=== PATIENT | female | born 1955 | race Caucasian/White ===

== ENCOUNTER 2021-12-19 07:14 | Outpatient (CLI) | payer OTHER, SELFPAY ==
--- NOTE | 2021-12-19 08:52 | W.ANESCHARGE ---
Anesthesia Charges Start Date/Time Anesthesia Start Date: 12/19/21 Anesthesia Start Time: 08:09 Stop Date/Time Anesthesia Stop Date: 12/19/21 Anesthesia Stop Time: 08:48 Summary Emergency: No
--- NOTE | 2021-12-19 10:22 | W.ANESCHARGE ---
Anesthesia Charges Start Date/Time Anesthesia Start Date: 12/19/21 Anesthesia Start Time: 08:09 Stop Date/Time Anesthesia Stop Date: 12/19/21 Anesthesia Stop Time: 08:48 Summary Emergency: No
== END 2021-12-19 07:15 | disposition home or self-care (01) ==
PROVIDERS: PCP Family Medicine; Visit Provider Internal Medicine Gastroenterology
DX: Z12.11 Encounter for screening for malignant neoplasm of colon (principal); K63.5 Polyp of colon; K44.9 Diaphragmatic hernia without obstruction or gangrene; K31.89 Other diseases of stomach and duodenum; R10.31 Right lower quadrant pain; Z86.010 Personal history of colon polyps
CPT/HCPCS: 00813; 43239; 45380; 88305; J2704

== ENCOUNTER 2024-10-24 13:02 | Outpatient (CLI) | payer MEDICARE, SELFPAY ==
--- OUTSIDE RECORDS SUMMARY | 2008-12-03 13:01 | XMS_ITS | Continuity of Care Document ---
Author Organization [facility] Address [address] [place] [address] Phone Care Team Providers Care Automotive Engineering Technician Name Role Phone Benny GONSALEZ MD, Dimitri Unavailable Unavailable Advance Directives Directive Yes / No Effective Date File Name No Information Encounters Encounter Description Practice Location Reason(s) For Visit Diagnoses Date Provider Providers Copied on Encounter [facility], [address] [facility] [address], [place], [place], [id number], [place] tel:[phone] No Information 0200 9 Benny Mosley. [address], [place], [address], [place]. tel:[phone] Referring Provider: Dimitri Kiran, [address] [place], [place], [facility]. tel:[phone] Family History Family Member Type Diagnosis Age At Onset No Information Payers Payer name Insurance type Covered democrat ID Authoriza tion(s) Blue Plus BL [id number] Social History Type Description Quantity Date Captured Comments Sex Female Smoking Status No Information Chief Complaint And Reason For Visit No Information Reason For Referral Reason For Referral No Information History Of Present Illness Encounter Date Complaint History Of Prese nt Illness No Information Functional Status Date Functional Assessmen t No Information Instructions Date Instruction Additional Infor mation No Information Assessments Type Assessment Date No Information Patient Care Teams Name Effective Dates (start - stop) Status Members No Information
--- OUTSIDE RECORDS SUMMARY | 2018-04-04 04:06 | XMS_ITS | Continuity of Care Document ---
Author Organization [facility] Address [address] [address] [place] [address] Phone Care Team Providers Care [employer] Name Role Phone Monty HERRERA, Kasie Unavailable Unavailable Allergies, Adverse Reactions, Alerts Substance Reaction Status Criticality trimethoprim Active No Information sulfamethoxazole Active No Informat ion ragweed pollen anaphlaxis Active No Informatio n Iodinated Contrast Media itchingitching Active N o Information amoxicillin rash Active No Information fentanyl increased heart rate (220) Active N o Information WARNIN allergy(ies) could not be collected because the type is not supported. Please contact the source practice for further details. Medications Medication Instructions Dosage Effective Dates (start - stop) Status Comments Zantac 150 mg tablet take 1 tablet by oral route 2 times every day - Active atenolol 50 mg tablet take 1 tablet by oral route every day 50 MG - Active omeprazole 20 mg capsule,delayed release take 1 capsule by oral route every day before a meal 20 MG - Active Ativan 1 mg tablet take 0.5 mg tablet as needed - Active Ambien 10 mg tablet take 1 by Oral route every evening prn sleep 1 - Active METAMUCIL (unknown strength) take 1 tablespoon by oral route every day Not Available - Active Vitamins and Minerals tablet honey bee venom - Active Zantac 150 mg tablet take 1 tablet by oral route 2 times every day - No Longer Active Procedures Procedure Date Offic/outpt E&m Estab Low-mod 8 Esophageal Motility Study Ugi Endo; W/bx 1/mx Level Iv-surg Path Gross/micro 18 Colonoscopy Flex; W/bx 1/mx Ugi Endo; W/bx 1/mx Level Iv-surg Path Gross/micro 17 Colonoscopy Flex; W/bx 1/mx Offic Cons New/estab Mod-hi 60 08 Advance Directives Directive Yes / No Effective Date File Name No Information Encounters Encounter Description Practice Location Reason(s) For Visit Diagnoses Date Provider Providers Copied on Encounter [facility], [address] [address], [place], [id number], [place] tel:[phone] [facility] [address] No Information 8 Monty Ferro. [address] [place] [address], [id number], [place]. tel:[phone] Offic/outpt E&m Estab Low-mod [facility], [address] [address], [place], [id number], [place] tel:[phone] [facility] [address] GI Symptoms or Concerns (chief complaint) Gastro-esophag eal reflux disease with esophagitisDys phagia, unspecified typeDietary counseling and surveillanceEs sential (primary) hypertension 8 Monty Ferro. [facility] [address], [id number], [place]. tel:[phone] Referring Provider: Referral Self, USE FOR SELF REFERRALS. [facility], [address] [address], [place], [id number], [place] tel:[phone] [facility] Dysphagia, unspecified type 8 Camilla Adair. [address] [facility], [facility] [address], [place], [id number], [place]. tel:[phone] [facility], [address] [address], [place], [id number], [place] tel:[phone] [facility] [address] GI Symptoms or Concerns (chief complaint) Dysphagia, unspecified 8 Camilla Adair. [address] [facility], [address], [id number], [place]. tel:[phone] Referring Provider: Referral Self, USE FOR SELF REFERRALS. [facility], [address] [address], [place], [id number], [place] tel:[phone] [facility] Dysphagia, unspecified typeGastro-eso phageal reflux disease with esophagitisDys phagia, unspecified 3 8 Camilla Adair. [address], [id number], [place]. tel:[phone] Referring Provider: Referral Self, USE FOR SELF REFERRALS. [facility], [address] [address], [place], [id number], [place] tel:[phone] [facility] Dysphagia, unspecified type 8 Camilla Adair. [address] [facility], [address], [id number], [place]. tel:[phone] Kentrell Spencer MD. tel:[phone] [facility], [address] [address], [place], [id number], [place] tel:[phone] [facility] Gastroesophage al reflux disease without esophagitis 8 Camilla Adair. [address] [place] [address], [id number], [place]. tel:[phone] Kentrell Spencer MD. tel:[phone] [facility], [address] [address], [place], [id number], [place] tel:[phone] [facility] Gastroesophage al reflux disease without esophagitisPol yp of ascending colon, unspecified typeEncounter for screening for malignant neoplasm of colonBenign neoplasm of transverse colonGastro-es ophageal reflux disease without esophagitisBen ign neoplasm of transverse colon Feb- 7 Camilla Adair. [address] [place] [address] [place], [id number], [place]. tel:[phone] Referring Provider: Mona Tanner MD, [address] [facility], [place], [address]. tel:[phone] [facility] [place], [address] [address], [place], [place], [id number], [place] tel:[phone] No Information Aug-0 3200 8 No Information Referring Provider: No Primary. Offic Cons New/estab Mod-hi 60 [facility] [place], [address] [address], [facility] [place], [id number], [place] tel:[phone] No Information 0 3200 8 No Information Referring Provider: No Primary. Family History Family Member Type Diagnosis Age At Onset Brother Problem (finding) Alive and well Mother Problem (finding) Mother Problem (finding) malignant neoplasm of l veronica Father Problem (finding) Diabetes mellitus Brother Problem (finding) Diabetes mellitus Immunizations Vaccine Date Status Comments Influenza, injectable, MDCK, preservative free Flucelvax Quad Y administered Source: Other Provid er Payers Payer name Insurance type Covered republican ID Authoriza tiankit(s) Blue [employer] [facility] [id number] Social History Type Description Quantity Date Captured Comments Sex Female Smoking Status No Information Chief Complaint And Reason For Visit No Information Reason For Referral Reason For Referral No Information Plan Of Treatment Date Type Action Status Goal Lifestyle education regardin g diet completed Referral Ordered: Esoph Motility Study; Appointment date/timeframe: 03/15/2018 ordered Referral Ordered: Video Swallow With Speech Pathologist/Occupational Therapist Appointment date/timeframe: 03/19/2018 ordered Referral Ordered: Xray Esophagus (Barium Swallow Study) Appointment date/timeframe: 03/19/2018 ordered Referral Ordered: EGD Appointment date/timeframe: 03/05/2018 ordered Referral Ordered: follow-up visit with Kyler flaherty/ROSALEE ordered History Of Present Illness Encounter Date Complaint History Of Prese nt Illness GI Symptoms or Concerns This is a 62-year-old female who returns to clinic for followup after testing. She was evaluated for reflux symptoms with endoscopy in February 2017. This endoscopy showed Hill grade 4 anatomy, otherwise was normal. Small bowel biopsies were normal. She did have a screening colonoscopy at that time as well, which showed 2 transverse polyps, and repeat colonoscopy was recommended in 1 year.The history is somewhat confusing, but it sounds like around the time of that endoscopy, she was under quite a lot of stress, and also had been taking NSAIDs following a bunion surgery. She describes an ongoing problems with sore throat as well as gurgling and wheezing noises in her throat. She describes coughing up secretions, especially at night. She saw an ENT and it sounds like their exam did not suggest reflux. Because of persistent symptoms, she had another endoscopy on 03/05/2018. This showed a somewhat tortuous esophagus with tertiary contractions, and otherwise was normal. [facility] GI Symptoms or Concerns Functional Status Date Functional Assessmen t No Information Instructions Date Instruction Additional Infor bia Gastroesophageal Reflux Disease Related to Gastro-esophageal reflux disease with esophagitis Lifestyle education regarding di et Related to Dietary counseling and surveillance Colon Polyps Related to Polyp of ascending colon, unspecified type Colon Cancer Prevention Related to Polyp of ascending colon, unspecified type Assessments Type Assessment Date No Information Patient Care Teams Name Effective Dates (start - stop) Status Members No Information
--- NOTE | 2024-10-24 14:45 | P.ANES_ITS ---
Anesthesia Charges Start Date/Time Anesthesia Start Date: 10/24/24 Anesthesia Start Time: 14:06 Stop Date/Time Anesthesia Stop Date: 10/24/24 Anesthesia Stop Time: 14:45 Coding CPT Codes CPT Codes: MARTINEZ LWR INTST NDSC NOS - 75942 ([id number]) P2 - PATIENT W/MILD SYST DISEASE, QK - OIL WELL CABLE TOOL DRILLER 2-4 CNCRNT ANES PROC, QX - FEED RESEARCH TECHNICIAN SVC W/ MD MED DIRECTION
--- NOTE | 2024-10-24 14:45 | W.ANESCHARGE ---
Anesthesia Charges Start Date/Time Anesthesia Start Date: 10/24/24 Anesthesia Start Time: 14:06 Stop Date/Time Anesthesia Stop Date: 10/24/24 Anesthesia Stop Time: 14:45 Coding CPT Codes CPT Codes: MARTINEZ LWR INTST NDSC NOS - 13332 ([id number]) P2 - PATIENT W/MILD SYST DISEASE, QK - OCCUPATIONAL THERAPY SPECIALIST 2-4 CNCRNT ANES PROC, QX - ULTRASONIC SOLDERER SVC W/ MD MED DIRECTION
--- NOTE | 2024-10-24 14:47 | P.ANES_ITS ---
Anesthesia Charges Start Date/Time Anesthesia Start Date: 10/24/24 Anesthesia Start Time: 14:06 Stop Date/Time Anesthesia Stop Date: 10/24/24 Anesthesia Stop Time: 14:45 Coding CPT Codes CPT Codes: MARTINEZ LWR INTST NDSC NOS - 19877 ([id number]) P2 - PATIENT W/MILD SYST DISEASE, QK - WEB SITE SPECIALIST 2-4 CNCRNT ANES PROC, QX - PULVERIZING AND SIFTING OPERATOR SVC W/ MD MED DIRECTION
--- NOTE | 2024-10-24 14:47 | W.ANESCHARGE ---
Anesthesia Charges Start Date/Time Anesthesia Start Date: 10/24/24 Anesthesia Start Time: 14:06 Stop Date/Time Anesthesia Stop Date: 10/24/24 Anesthesia Stop Time: 14:45 Coding CPT Codes CPT Codes: MARTINEZ LWR INTST NDSC NOS - 74849 ([id number]) P2 - PATIENT W/MILD SYST DISEASE, QK - ACCOUNTING MACHINE OPERATOR 2-4 CNCRNT ANES PROC, QX - PSYCHOTHERAPIST SOCIAL WORKER SVC W/ MD MED DIRECTION
--- OUTSIDE RECORDS SUMMARY | 2024-10-25 00:44 | XMS_ITS | Clinical Summary ---
Author Organization [facility] Address [address] [facility] [address] [place] [address] Phone Care Team Providers Care Ed Tech Name Role Phone [facility] Unavailable Unava ilable Conditions or Problems Problem Name Problem Code Onset Date Status Entry Date Provider Comment Standard Description Annotate Neuropathic pain 151508378 (SNOMED CT) 10/29 Active 10/29 Samm Lauren MD Neuropathic pain Peripheral polyneuropathy 666096984 (SNOMED CT) 10/29 Active 10/29 Samm Lauren MD Peripheral nerve disease COCCYGEAL PAIN 94445313 (SNOMED CT) 11/09 Active 11/12 Nahmoy Juliana Pain in coccyx ROTATOR CUFF SPRAIN AND STRAIN S43.429A (ICD-10-CM ) 07/08 Active 07/12 Destiny Reibel Sprain of unspecified rotator cuff capsule, initial encounter PAIN IN JOINT, SHOULDER REGION 804031817 (SNOMED CT) 05/17 Active 05/20 Destiny Reibel Shoulder joint pain LATE EFF LUMBAR STRAIN 905.7 (ICD-9-CM) 05/17 Active 05/20 Destiny Reibel Late effect of sprain and strain without mention of tendon injury LUMBOSACRAL SPONDYLOSIS WITHOUT MYELOPATHY 85472207 (SNOMED CT) 05/17 Active 05/20 Destiny Reibel Lumbosacral spondylosis without myelopathy ANXIETY STATE, UNSPECIFIED 689086156 (SNOMED CT) 05/22 Active 05/23 Destiny Reibel Anxiety state TROCHANTERIC BURSITIS 7661661 (SNOMED CT) 01/26 Active 02/03 Destiny Reibel Greater trochanteric pain syndrome SACROILIAC JOINT DYSFUNCTION 485636964 (SNOMED CT) 01/26 Active 02/03 Destiny Reibel Sacroiliac disorder LEG WEAKNESS G83.10 (ICD-10-CM ) 01/26 Active 02/03 Destiny Reibel 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 LOW BACK PAIN 036162082 (SNOMED CT) 01/26 Active 02/03 Destiny Reibel Low back pain HEADACHE 33981751 (SNOMED CT) Active 07/18 Chloe Raehsler NUCLEAR REACTOR ENGINEER Headache CARPAL TUNNEL SYNDROME 79377578 (SNOMED CT) 02/03 Active 06/02 Apoorva Becerra Carpal tunnel syndrome DISPLACEMENT, CERVICAL DISC W/O MYELOPATHY 00279092 (SNOMED CT) 02/03 Active 06/02 Apoorva Becerra Displacement of cervical intervertebral disc without myelopathy BACK PAIN, THORACIC REGION 942940108 (SNOMED CT) 01/14 Active 06/02 Apoorva Becerra Thoracic back pain LATE EFFECT, CERVICAL STRAIN 905.7 (ICD-9-CM) 01/14 Active 06/02 Apoorva Becerra Late effect of sprain and strain without mention of tendon injury Medications Medication Instructions Start Date Stop Date Generic Name ND Provider AMLODIPINE BESYLATE 5 MG TABS TAKE 1 TABLET BY MOUTH EVERY DAY AMLODIPINE BESYLATE 15040543626 Samm Lauren MD AMITRIPTYLINE HCL 25 MG TABS TAKE 1 TABLET BY MOUTH EVERY DAY IN THE EVENING AMITRIPTYLINE HCL 98349566650 Samm Lauren MD GABAPENTIN 100 MG CAPS TAKE 1 CAP AT BEDTIME FOR A WEEK, 2 CAPS AT BEDTIME THE SECOND WEEK, 3 CAPS AT BEDTIME THEREAFTER GABAPENTIN 72032171367 Samm Lauren MD LORAZEPAM 0.5 MG TABS TAKE 2 TABLETS BY MOUTH EVERY 8 HOURS NEEDED LORAZEPAM 73190732389 Samm Lauren MD ATENOLOL 50 MG TABS TAKE 1 TABLET BY MOUTH EVERY DAY ATENOLOL 00120296588 Samm Lauren MD ESTRADIOL 0.1 MG/GM CREA INSERT 1 G INTO THE VAGINA AT BEDTIME. MAY APPLY SMALL AMOUNT EXTERNALLY VS USING APPLICATOR. ESTRADIOL [id number] Samm Lauren MD [id number] ETHYL ESTERS 1 GM CAPS TAKE 2 CAPSULES BY MOUTH EVERY DAY [id number] ETHYL ESTERS 08469382712 Samm Lauren MD FAMOTIDINE 20 MG TABS TAKE 1 TABLET BY MOUTH TWICE A DAY FAMOTIDINE 95260205656 Samm Lauren MD ZOLPIDEM TARTRATE 10 MG TABS TAKE ONE TABLET BY MOUTH AT BEDTIME IF NEEDED FOR SLEEP. ZOLPIDEM TARTRATE 47463668124 Samm Lauren MD AMBIEN 10 MG TABS 1po qhs -- Rx'd by PMD per pt. ZOLPIDEM TARTRATE [id number] Ami Gums MA IBUPROFEN 800 MG TABS 1po tid prn pain IBUPROFEN 66515742772 Ami Gums MA NABUMETONE 750 MG TABS 1po bid with food NABUMETONE 46372959299 Ami Gums MA IBUPROFEN 800 MG TABS 1po tid prn pain IBUPROFEN 99679080576 Oli Jovel MD FLEXERIL TABS 10 MG i- po q 8h prn CYCLOBENZAPRINE HCL 41831379517 Ami Gums MA NABUMETONE 750 MG TABS 1po bid with food NABUMETONE [id number] Oli Jovel MD CALCIUM CITRATE-VITAMIN D TABLET Prescribed by Family GONSALEZ CALCIUM CITRATE-VITAMIN D TABS 12479244597 Aleksandra Ly MULTIVITAMINS TABS Prescribed by Family GONSALEZ MULTIPLE VITAMIN [id number] Aleksnadra Jacob ATENOLOL TABS 25mg qd--Prescribed by Family GONSALEZ ATENOLOL TABS [id number] Aleksandra Jacob ATIVAN 0.5 MG TABS 0.5mg- 1mg--1-2 times a day--Prescribed by Family GONSALEZ LORAZEPAM [id number] Aleksandra Ly TRAMADOL HCL TABS 25mg --1-3 tabs qd --Prescribed by Family GONSALEZ TRAMADOL HCL TABS [id number] Aleksandra Ly ULTRAM 50 MG ORAL TABLET i-ii q 6 hr prn not to exceed 400 mg qd TRAMADOL HCL 29024632039 Aleksandra Ly FLEXERIL TABS 10 MG i- po q 8h prn CYCLOBENZAPRINE HCL 90027020045 Oli Jovel MD ULTRAM 50 MG ORAL TABLET i-ii q 6 hr prn not to exceed 400 mg qd TRAMADOL HCL 27311238392 Bree Guzman PA-C NAPROXEN 500 MG TABS i- po bid prn NAPROXEN 80361268622 Ami Gums MA FLEXERIL TABS 10 MG i- po q 6h prn CYCLOBENZAPRINE HCL 91786778512 Ami Gums MA HOME REPLACEMENT House Hold Cleaning, Dusting, Vaccuming, Dishes, Sweeping and Mopping, Laundry, moving any heavy objects,Yard Work, Painting, Windows, and Shavaling in the winter. HOME REPLACEMENT Oli Jovel MD NAPROXEN 500 MG TABS i- po bid prn NAPROXEN [id number] Oli Jovel MD FLEXERIL TABS 10 MG i- po q 6h prn CYCLOBENZAPRINE HCL 70548750296 Oli Jovel MD VALIUM 10 MG TABS take one tab by mouth 6h before scan and may repeat one tab 2h before scan and if needed one at the time of scan........ must have bus driver supervisor DIAZEPAM [id number] Ami Gumkurt MA VALIUM 10 MG TABS take one tab by mouth 6h before scan and may repeat one tab 2h before scan and if needed one at the time of scan........ must have bus driver supervisor [facility] [phone] Oli Jovel MD HOME REPLACEMENT House Hold Cleaning, Dusting, Vaccuming, Dishes, Sweeping and Mopping, Laundry and with moving of any heavy objects, and Yard Work. HOME REPLACEMENT Oli Jovel MD Medications Administered No information available. Allergies, Adverse Reactions, Alerts Allergy Name Reaction Description Start Date Severity Statu s Provider FENTANYL Rapped Heart Beat. L ight Headed. Critical Active Ami Gums MA CONTRAST DYE rash/hot Critical Active Kathry n Ly FENTANYL Critical No Longer Active Aleksandra Ly RAGWEED unknown reaction Critical Active Shayne helle Aliynebranelvin MA BEE STINGS unknown reaction Critical Active Mi greg Wedebrand MA AMOXICILLIN unknown reaction Critical Active M emily Mahnaz MA Results Date Name Value Unit Range Flag Description Office Visit: mail SMOK STATUS former smoker Tob acco smoking status MEDS REVIEW Done Documenta tion of current medications (procedure) Internal Other: Authorizatio n - OBS [id number] Yes GE use only - for LinkLogic import when terms are not otherwise specified Internal Other: Verbal Autho rization/Emergency Contact - OBS VERBAL_EMER Done Verbal au thorization and emergency contact Internal Other: Authorizatio n - OBS [email or web address] Yes Authoriza tion: Release of Information - Authorize [facility] - Payment and Healthcare Operations ROIAUTHOTHER Yes Authoriz ation: Release of Information - Authorize Others/Insurance - Payment and Healthcare Operations HIECONSENT Yes Consent To Release information to the Health Information Exchange (HIE) [email or web address] Yes Authorizat ion: Authorization for [facility] to leave messages, voicemail, send text messages, send emails AUTHRELHCARE Yes Authoriz ation: Release/Retrieval of Information to/from Healthcare Facilities, Pharmacy Benefit Payers and Providers AUTHPRIVPRAC Yes Authoriz ation: Notice of privacy practices AUTHBENEFIT Yes Authoriza tion: Assignment of Benefits and Payment Agreement Plan of Care Type Date Detail Pending order Follow up ROSALEE Pending order Follow up ROSALEE Pending Order exclud ed from report: Pending order Patient Instruct ions Pending order Immunofixation S moises Pending order Vitamin B6 (Pyri doxine) Procedures Code Procedure Name Date Entry Date CPT-62065 Nerve Conduction 11-12 studies CPT-00429 EMG with NCS (5+ muscles) - 2 limbs 04/05 ORDERS Follow up ROSALEE ORDERS Immunofixation Serum ORDERS Vitamin B6 (Pyridoxine) 2020 [facility]-[id number] Documentation of current medicatio ns ORDERS Patient Instructions CPT-69109 MRI Pelvis (Without Contrast) CPT-41166 Fluoroscopy Guidance and Localization (MD Rae) CPT-98052 Injection, S1 Joint ([facility]) 20 01/15/27 CPT-92292 Injection, Major Joint or Bursa ([facility]) 200 01/15/27 CPT-42802 Fluoroscopy Guidance and Localization (MD Rae) CPT-50610 Injection, Major Joint or Bursa ([facility]) 200 01/14/21 CPT-67572 Injection, S1 Joint ([facility]) 20 01/14/21 CPT-03772 EMG 1 limb CPT-98499 Motor NCS x 2 CPT-84349 Sensory NCS x 1 CPT-75193 MRI Lumbar (Without Contrast) Vital Signs Date Name Value Unit Description Height 66 [in_us] height E&M BMI (Body Mass Index) 30.62 kg/m2 Bod y Mass Index (Ratio) Weight Measured 85.91 kg weight in kilograms E&M Weight Measured 189 [lb_av] weight E& M Weight Measured 189 [lb_av] weight E& M BP Diastolic 89 mm[Hg] blood pressu re, diastolic BP Systolic 137 mm[Hg] blood pressur e, systolic Heart Rate 100 /min pulse rate Immunizations No information available. Advance Directives No information available.
--- OUTSIDE RECORDS SUMMARY | 2024-10-25 00:49 | XMS_ITS | Clinical Summary ---
Author Organization [facility] Address [address] [place] [address] Care Team Providers Care Plastics Patternmaker Name Role Phone [facility] Primary Care Provider Unava ilable Source Comments You are receiving this document as you are listed as the primary care provider,follow-up provider, or the patient has been referred to you for consultation.This is in compliance with the Medicare and[facility] E[facility] Incentive [facility],which states Providers who transition their patient to another setting of careor provider of care or refers their patient to another provider of care shouldprovide summary care record for each transition of care or referral. [employer] Allergies Active Allergy Reactions Criticality Noted Date Comments Amoxicillin 12/06/2009 PN: LW Reaction: pruritis Fentanyl 12/06/2009 PN: LW Reaction: TACHYCARDIA Other 12/06/2009 PN: LW Other1: -bee stings, Review Contrast Media 12/06/2009 PN: LW CM1: Nonspecific Contrast Adverse Reaction Reaction : Pruritis, Generalized Medications Estradiol 0.25 MG/0.25GM GEL Place onto the skin daily (every 24 hours). LW Comment:Uncon firmed Med Details 12/06/2009 Active ATENolol (AKA TENORMIN) 25 MG tablet Take 1 tablet by mouth daily (every 24 hours). LW Comment:Uncon firmed Med Details LW Addl Instr:Indicat ed for: High Blood Pressure 90 3 12/06/2009 Active famotidine (PEPCID) 40 MG/5ML suspension Take 0.5 mg/kg by mouth two times a day. Active ASPIRIN OR Active omega-3 fatty acids (FISH OIL) 1000 MG capsule Take 2 g by mouth daily. Active amitriptyline (ELAVIL) 25 MG tabletIndicatio ns:Pain in joints of both feet,Raynaud's disease without gangrene (HRC),Extremity numbness Take 1 Tablet by mouth every evening. 90 Tablet 3 07/19/2020 Active zolpidem (AMBIEN) 10 MG tablet TAKE ONE TABLET BY MOUTH AT BEDTIME IF NEEDED FOR SLEEP. 04/23/2020 Active gabapentin (NEURONTIN) 100 MG capsuleIndicati ons:Pain in joints of both feet,Raynaud's disease without gangrene (HRC),Extremity numbness 100 mg at bedtime for a week, than 200 mg at bedtime the second week, than 300 mg at bedtime thereafter. 90 Capsule 5 07/19/2020 Active Active Problems Problem Noted Date Diagnosed Date Endometriosis 12/06/2009 Overview (12/27/2016): Endometriosis NOS Disorder of coccyx 12/06/2009 Overview (12/27/2016): Coccydynia Pain in joint 12/06/2009 Overview (12/27/2016): LW Modifier: right shoulder ; Arthralgia Backache 12/06/2009 Overview (12/27/2016): LW Modifier: chronic ; Pain Back Problem with head, neck, or trunk 12/06/2009 Overview (12/27/2016): LW Modifier: chronic neck pain ; Neck Problems NOS Carpal tunnel syndrome 12/06/2009 Immunizations Immunization Administration Dates Next Due Influenza, Unspecified Formulation 02/10/2020 Social History Tobacco Use Types Packs/Day Years Used Date Smoking Tobacco: Never Smokeless Tobacco: Never Comments Unknown Sex and Gender Information Value Date Recorded Sex Assigned at Not on file Legal Sex Female 3:38 AM CDT Gender Identity Not on file Sexual Orientation Not on file Last Filed Vital Signs Vital Sign Reading Time Taken Comments Blood Pressure 131/72 04/12/2020 11:09 AM WEB CONTENT EXECUTIVE Pulse 84 04/12/2020 11:09 AM WEB CONTENT EXECUTIVE Temperature 36.8 C (98.2 F) 04/12/2020 11:09 AM WEB CONTENT EXECUTIVE Respiratory Rate - - Oxygen Saturation - - Inhaled Oxygen Concentration - - Weight 87.1 kg (192 lb) 04/12/2020 11:09 AM WEB CONTENT EXECUTIVE Height 170.2 cm (5' 7) 04/12/2020 11:09 AM WEB CONTENT EXECUTIVE Body Mass Index 30.07 04/12/2020 11:09 AM WEB CONTENT EXECUTIVE Plan of Treatment Health Maintenance Due Date Last Done Comments Colon Cancer Screening Plan Due 1955 Hep C Screening (Preventive Services) 1955 Mammogram 1955 Adult Preventive Visit 1974 Cholesterol 2001 Pneumococcal Vaccine 50+ Yrs (1 of 1 - PCV) 2006 COVID-19 Vaccine (2 - season) 2024 07/15/2020 DTaP/Tdap/Td Vaccine (2 - Tdap) 08/27/2024 08/27/2014, 02/26/2003 Influenza Vaccine (Season Ended) 2025 02/10/2020, 02/06/2019, 02/07/2018, Additional history exists RSV Vaccine (1 - 1-dose 75+ series) 11/20/2031 HepA Vaccine Aged Out 10/16/2017, 04/07, 04/04/2017 No longer eligible based on patient's age to complete this topic Zoster/Shingles Vaccine Completed 03/21/2018, 01/21 HepB Vaccine Aged Out No longer eligi ble based on patient's age to complete this topic Hib Vaccine Aged Out No longer eligi ble based on patient's age to complete this topic IPV (Polio) Vaccine Aged Out No longe r eligible based on patient's age to complete this topic MCV4 Vaccine Aged Out No longer eligi ble based on patient's age to complete this topic Meningococcal B Vaccine Aged Out No l onger eligible based on patient's age to complete this topic Insurance Dr [place], [place] [id number] [facility] [address] [place], [id number] Care Teams Plastics Patternmaker Relationship Specialty Start Date End Date [facility] PCP - General 08/07/10
--- OUTSIDE RECORDS SUMMARY | 2024-10-25 00:49 | XMS_ITS | Clinical Summary ---
Author Organization [facility] Address [address] [place] [address] Care Team Providers Care Material Assistant Name Role Phone Brenda Davis MD Primary Care Provider Allergies Active Allergy Reactions Criticality Noted Date Comments Amoxicillin Itching 04/21/2005 Hymenoptera Allergenic Extract 04/21/2005 Fentanyl Intolerance-Can't Take,Tachycardia 10/06/2005 HR up to 160 Diatrizoate Allergen Hives 04/21/2005 With premedication OK Sulfa (Sulfonamide Antibiotics) Nausea Only 11/20/2016 Venom-Honey Bee Anaphylaxis High 08/16/2020 Medications PSYLLIUM SEED, WITH SUGAR, (METAMUCIL ORAL) Take by mouth. Activ e hydrocortisone 2.5% creamIndication s:Rectal itching Apply topically to affected area(s) 2 times daily if needed for Itching. 28 g 3 12/02/19 17 Active Ca Carb-Mag Cmb 11-D3-Zn Sulf 517-041-177-5 ev-wgpy-gj-mg tablet Take 1-3 tablets by mouth once daily. 0 04/02/20 17 Active ammonium lactate 12% (LACHYDRIN) 12 % cream 2 02/20/20 18 Active estradioL (ESTRACE) 0.01% (0.1 mg/g) vaginal creamIndication s:Postmenopause atrophic vaginitis Insert 1 g into the vagina at bedtime. May apply small amount externally vs using applicator. 42.5 g 3 09/24/19 22 Active niacinamide 500 mg tablet Take 1 Tablet (500 mg) by mouth 2 times daily. 0 09/24/19 22 Active metroNIDAZOLE 0.75 % cream MASSAGE INTO SCAR ON FOOT 1 TO 2 TIMES DAILY ONGOING. 11/30/19 22 Active miscellaneous medical supply miscIndications :Nerve entrapment Sig: Will start at 1.5mg qhs for 1 month 2 unit 10/06/19 23 Active cyanocobalamin (Vitamin B-12) 1,000 mcg tabletIndicatio ns:Overweight Take 1 Tablet (1,000 mcg) by mouth once daily. 90 Tablet 3 09/26/19 23 Active Calcium Citrate 250 mg calcium tablet Take 2 Tablets (500 mg) by mouth two times daily with meals. 240 Tablet 5 02/20/20 23 Active furosemide (LASIX) 20 mg tabletIndicatio ns:HTN (hypertension) Take 1 Tablet (20 mg) by mouth once daily in the morning. 90 Tablet 4 09/21/19 24 Active ketoconazole 2% shampoo (NIZORAL) 2 % shampoo WASH AFFECTED AREAS ON FACE ONCE DAILY. LATHER AND LET SIT FOR SEVERAL MINUTES BEFORE RINSING. 03/13/20 23 Active EPINEPHrine (EPIPEN) 0.3 mg/0.3 mL auto-injectorIn dications:Bee allergy status Inject 0.3 mg intramuscular one time if needed for Allergic Reaction. 2 Each 2 09/21/19 24 Active zolpidem 10 mg tabletIndicatio ns:Insomnia, unspecified type TAKE 1 TABLET BY MOUTH EVERY DAY AT BEDTIME NEEDED FOR SLEEP 90 Tablet 1 09/06/19 25 Active dilTIAZem CD 180 mg extended release 24 hr capsuleIndicati ons:HTN (hypertension), Tachycardia,Rajani robe Raynaud's phenomenon Take 1 Capsule (180 mg) by mouth once daily. 93 Capsule 3 09/06/19 25 Active atenoloL 25 mg tabletIndicatio ns:HTN (hypertension), Tachycardia Take 1 Tablet (25 mg) by mouth once daily. 93 Tablet 3 09/06/19 25 Active polyethylene glycol-electrol yte 236-22.74-6.74 -5.86 gram suspensionIndic ations:Rectal bleeding Drink 2 liters (half the bottle) the day before colonoscopy and 2 liters (remaining prep) 6 hours prior to colonoscopy appointment. 4000 mL 10/18/19 25 Active famotidine 20 mg tabletIndicatio ns:Gastroesopha geal reflux disease, unspecified whether esophagitis present Take 1 Tablet (20 mg) by mouth once daily if needed for GI Upset or Heartburn. 10/22/19 25 Active amitriptyline 10 mg tabletIndicatio ns:Insomnia, unspecified type Take 1 Tablet (10 mg) by mouth at bedtime. 10/22/19 25 Active famotidine (PEPCID) 20 mg tabletIndicatio ns:Gastroesopha geal reflux disease, unspecified whether esophagitis present Take 1 Tablet (20 mg) by mouth once daily. 90 Tablet 3 09/21/19 24 025 Discontin ued(*Medi cation adjustmen t) amitriptyline 10 mg tabletIndicatio ns:Insomnia, unspecified type Take 2 Tablets (20 mg) by mouth at bedtime. 60 Tablet 06/03/19 25 025 Discontin ued(*Medi cation adjustmen t) Active Problems Problem Noted Date Diagnosed Date Depression, recurrent 09/21/2023 Colon polyp 12/20/2021 Overview (12/20/2021): Colonoscopy 12/2021 SSA, repeat in 5 years Primary Raynaud's phenomenon 09/25/2021 Elevated LFTs 09/25/2021 Overview (09/25/2021): FORBES Fib 4 score. -2.78 F0-F2 09/25/2021 Pelvic pain in female 01/17/2010 Back pain 01/17/2010 HTN (hypertension) 01/17/2010 Insomnia, unspecified 01/17/2010 Osteopenia 01/17/2010 Endometriosis 12/06/2009 09/25/2022 Overview (09/25/2022): Endometriosis NOS Tachycardia, unspecified 10/09/2005 Unspecified urinary incontinence 10/09/2005 Resolved Problems Problem Noted Date Diagnosed Date Resolved Date Diabetes mellitus type II 01/17/2010 Overview (07/22/2013): a system change updated this record. This will not affect patient care or billing. This comment can be deleted. Adhesive capsulitis 01/17/2010 10/22/19 Endometriosis of ovary 10/09/200501/17 Encounters Date Type Department Care Team Description 10/24/2024 12:15 PM CDT Office Visit [facility] [place] at [facility] [address] [place] [address] Ricky Slaughter MD Arrived 10/24/2024 Travel 10/21/2024 7:50 AM CDT Office Visit [facility] [address] [facility] [place] [address] Gracia Burgos MD Preoperative Exam (DOS 10/24/24/[facility]/Dr. Slaughter) 10/21/2024 Travel 10/17/2024 7:50 AM CDT Office Visit [facility] [address] [place] [address] Brenda Davis MD Follow Up (Patient would like to discuss lab results ferritin, hemoglobin, and other labs. /Patient states she has had rectal bleeding last week a few times and stool changes for about 3 weeks.) 10/17/2024 Telephone [facility] [place] [address] [facility] [place] [address] Ricky Slaughter MD 10/17/2024 Telephone [facility] [address] [facility] [place] [address] Ricky Slaughter MD COLONOSCOPY RX / CASE REQUEST 10/17/2024 Travel 10/07/2024 1:00 PM CDT Procedure Only [address] [address] Adi Edmonds L Ac Acupuncture 10/07/2024 Travel 10/01/2024 9:45 AM CDT Ancillary Procedure [facility] [place] [address] [facility] [place] [address] 10/01/2024 9:30 AM CDT Ancillary Procedure [facility] [address] [place] [address] 10/01/2024 9:15 AM CDT Office Visit [facility] [place] [address] [facility] [place] [address] Wade Kahn DPM Follow Up (Left foot) 10/01/2024 Travel 09/12/2024 Telephone [facility] [address] [facility] [place] [address] Brenda Davis MD Results 09/05/2024 7:25 AM CDT Office Visit [facility] [address] [facility] [place] [address] Brenda Davis MD Foot Pain/problem (Bunionectomy on left foot 5 years ago. Been having pain and swelling in that foot ); Medicare FIRST ANNUAL Visit (68 yr old ) 09/05/2024 Travel from Last 3 Months Immunizations Immunization Administration Dates Next Due AMB Influenza, IIV4 PF (=>6 mos Flulaval,Fluzone Fluarix)(Flu Clinic Only) 02/07/2018 COVID-19 vaccine (Moderna 100mcg/0.5mL) PF, MDV 08/16/2020,07/15/2020 HepA-HepB (Twinrix) 10/16/2017,05/02/2017,2016 Influenza Virus, Unspecified 02/10/2020, 04/28/2016,04/28/2015,2013 Influenza, High-dose Quadriv alent Inactivated 02/15/2023,02/13/2022 Influenza, IIV4 01/31/2021, 0,02/06/2019,2016 Pneumococcal Conj 20-valent (Prevnar 20) 11/23/2021 Td (Age >=7 Years) 02/26/2003 Tdap 08/27/2014 Zoster (Shingrix-RZV, recombinant) 03/21/2018, Family History Medical History Relation Name Comments Diabetes Brother 1 GI Disease Brother 1 barretts Diabetes type II Brother 2 dm Cardiomyopathy Father Diabetes Father Other Father dm Cancer-breast Maternal Aunt 1 50s same au nt also has had ovarian ca Cancer-ovarian Maternal Aunt 1 late 40's yrs old Cancer-breast Maternal Aunt 2 70s and has returned 2021 Cancer-breast Maternal Grandmother 50s Cancer-prostate Maternal Uncle Cancer Mother lung ca ? prima ry Cardiomyopathy Mother Diabetes Mother Heart Disease Mother Other Mother dm Cancer-breast Other 3 mat first co usins 30's yrs old and 50 yrs old Heart Disease Other Cancer-breast Paternal Aunt 1 70s Cancer-breast Paternal Aunt 2 60's yrs ol d Cancer-ovarian Paternal Grandmother 80's yrs old Cancer-colon No Family History Cancer-pancreatic No Family History Melanoma No Family History Relation Name Status Comments Brother 1 Alive Brother 2 Alive Father Maternal Aunt 1 Maternal Aunt 2 Maternal Grandmother Maternal Uncle Mother Other Paternal Aunt 1 Paternal Aunt 2 Paternal Grandmother Social History Tobacco Use Types Packs/Day Years Used Date Smoking Tobacco: Never Smokeless Tobacco: Never Tobacco Cessation:Counseling Given: Yes Comments:concerned about second-hand smoke Alcohol Use Standard Drinks/Week Comments Yes 0 (1 standard drink = 0.6 oz pur e alcohol) 1-2 drinks per week PHQ-2 Answer Date Recorded PHQ-2 TOTAL SCORE 1 09/05/2024 Social Connections Answer Date Recorded Do you often feel lonely or isolated from those around you? 0 10/08/2024 Financial Resource Strain Answer Date R ecorded Difficulty of Paying Living Expenses 3 10/08/2024 Difficulty of Paying Living Expenses Not on file 10/08/2024 Food Insecurity Answer Date Recorded Do you worry your food will run out before you are able to buy more? 1 10/08/2024 Transportation Needs Answer Date Record ed Does lack of transportation keep you from medica l appointments? 1 10/08/2024 Does lack of transportation keep you from work, meetings or getting things that you need? 1 10/08/2024 Housing Stability Answer Date Recorded What is your housing situation today? 1 10/08/2024 Utilities Answer Date Recorded Do you have trouble paying f or utilities (for example, heat, electricity, water, phone)? 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 Gender Identity Not on file Sexual Orientation Not on file Obstetrics History Last Filed Vital Signs Vital Sign Reading Time Taken Comments Blood Pressure 117/76 10/21/2024 7:58 AM CDT Pulse 88 10/21/2024 7:58 AM CDT Temperature 36.6 C (97.8 F) 10/21/2024 7:58 AM CDT Respiratory Rate 16 11/12/2023 1:54 PM CDT Oxygen Saturation 98% 10/21/2024 7:58 AM CDT Inhaled Oxygen Concentration - - Weight 84.5 kg (186 lb 6.4 oz) 10/21/2024 7:58 A M CDT Height 168 cm (5' 6.14) 10/21/2024 7:58 AM CDT Body Mass Index 29.96 10/21/2024 7:58 AM CDT Plan of Treatment Upcoming Encounters Date Type Department Care Team (Late st Contact Info) Description 10/27/2024 10:00 AM CDT Procedure Only [facility] [place] [address] [facility] [place] [address] Adi Edmonds L Ac [address] [facility] [place] [address] 11/06/2024 11:00 AM CDT Procedure Only [facility] [place] [address] [facility] [place] [address] Adi Edmonds L Ac [address] [facility] [place] [address] 11/14/2024 1:30 PM CDT Procedure Only [facility] [place] [address] [facility] [place] [address] Adi Edmonds L Ac [address] [place] [address] 11/20/2024 1:00 PM CDT Procedure Only [facility] [place] [address] [facility] [place] [address] Adi Edmonds L Ac [address] [place] [address] 11/28/2024 11:00 AM CDT Procedure Only [facility] [place] [address] [place] [address] Adi Edmonds L Ac [address] [place] [address] 12/01/2024 8:30 AM CDT Ancillary Procedure [facility] [place] [address] [place] [address] 12/08/2024 2:15 PM CDT Appointment [facility] [address] [place] [address] 12/08/2024 3:00 PM CDT Office Visit [facility] [address] [place] [address] Taylor Caceres PA [address] [place] [address] 01/19/2025 9:00 AM CDT Orders Only [facility] [place] [address] [place] [address] Lab, [place] 01/26/2025 8:20 AM CDT Office Visit [facility] [place] [address] [place] [address] Brenda Davis MD [address] [place] [address] Scheduled Procedures Name Priority Associated Diagnoses Date/Ti me SURGICAL PROCEDURE (TYPE PRO CEDURE DESCRIPTION BELOW) Rectal bleeding Health Maintenance Due Date Last Done Comments RSV vaccine for adults or (1 - Risk 60-74 years 1-dose series) 2016 Tetanus booster 08/27/2024 08/27/2014, 02/26/2003 Mammogram for age 45-75 11/11/2024 11/12/19 24, 09/28/2022, 09/27/2021, Additional history exists Influenza Vaccine (Season Ended) 2025 01/31/2021, 02/10/2020, 02/10/2020, Additional history exists Depression screening for age 12+ 09/05/2025 09/05/2024, 09/23/2023, 09/21/2023, Additional history exists Medicare Wellness for age 65+ 09/06/2025 09/05/2024 BMI (ht and wt on same day) for age 18+ 10/21/2025 10/21/2024, 09/05/2024, 11/12/2023, Additional history exists Lipids for age 45-75 09/05/2029 09/05/2024, 09/21/2023, 09/25/2022, Additional history exists Colonoscopy through age 75 10/24/202910/24, 10/24/2024, 12/19/2021, Additional history exists Tdap Completed 08/27/2014 Hepatitis B series for 19+ Completed 10/16, 05/02/2017, 04/04/2017 Zoster (shingles) series for age 50+ Completed 03/21/2018, 01/21/2018 Hepatitis C screening for ag e 18-79 Completed 02/24/2019 Pneumococcal series for age 50+ Completed DEXA/DXA scan for age 65+ Completed 11/24/2021, COVID-19 vaccine series Completed 08/27/19, 01/28/2024, 02/15/2023, Additional history exists Medical Devices Implanted Type Area Customer Relations Consultant Device Identifier Shelf Expiration Date Model / Serial / Lot Sling Monarc Subfascial Suzanna - [id number] Implanted:Qty: 1 on 10/09/[address] [facility] [employer] [id number] / / Description:see paper implan t sheet Procedures Procedure Name Priority Date/Time Associated Diagnosis Comments COLONOSCOPY DIAGNOSTIC Routine 10/24/2024 7:19 AM CDT Hematochezia ACUPUNCTURE PLAN OF CARE Routine 10/07/2024 1:00 PM CDT Other low back pain XR TIBIA AND FIBULA 2 VIEWS LEFT Routine 10/01/2024 9:41 AM CDT Left leg pain XR FOOT 3 VIEWS LEFT Routine 10/01/2024 9:41 AM CDT Pain of midfoot, left BASIC METABOLIC PANEL Routine 09/05/2024 8:54 AM CDT HTN (hypertension) AST (SGOT) Routine 09/05/2024 8:54 AM CDT Elevated LFTs ALT (SGPT) Routine 09/05/2024 8:54 AM CDT Elevated LFTs LIPID PANEL W REFLEX MEASURED LDL Routine 09/05/2024 8:54 AM CDT Mixed dyslipidemia HEMOGLOBIN A1C Routine 09/05/2024 8:54 AM CDT Prediabetes HBSAG (HBS) Routine 09/05/2024 8:54 AM CDT Elevated LFTs IGM ANTI-HBC Routine 09/05/2024 8:54 AM CDT Elevated LFTs FERRITIN Routine 09/05/2024 8:54 AM CDT Elevated LFTs VITAMIN B12 Routine 09/05/2024 8:54 AM CDT Low vitamin B12 level XR MAMMO JULIANA BILAT SCREEN Routine 11/12/2023 1:45 PM CDT Visit for screening mammogram XR DXA BONE DENSITY 2 SITES AXIAL Routine 11/24/2021 11:27 AM CDT Osteopenia, unspecified location ANTI HCV Routine 02/24/2019 8:47 AM CDT Encounter for hepatitis C screening test for low risk patient from Last 3 Months or Most Recently Relevant to Health Maintenance Results * XR TIBIA AND FIBULA 2 VIEWS LEFT (10/01/2024 9:41 AM CDT) Anatomical Region Laterality Modality Tibia Computed Radiogr aphy 10/01/2024 12:5 4 PM CDT Impressions 10/01/2024 12:54 PM CDT Negative left tibia and fibula. Dictated by Javi Abbott MD @ 10/01/2024 12:54:11 PM (Electronically Signed) Narrative 10/01/2024 12:54 PM CDT For Patients: As a result of the Cures Act, medical imaging exams and procedure reports are released immediately into your electronic medical record. You may view this report before your referring provider. If you have questions, please contact your health care provider. INDICATION: Left leg pain TECHNIQUE: 2-view left tibia and fibula. COMPARISON: none FINDINGS: The knee and ankle are anatomically aligned. There is no evidence of a fracture or intrinsic bone lesion within the tibia and fibula. The soft tissues appear normal. Procedure Note Javi Abbott MD - 10/01/2024 For Patients: As a result of the Cures Act, medical imagingexams and procedure reports are released immediately into your electronicmedical record. You may view this report before your referring provider.If you have questions, please contact your health care provider. INDICATION: Left leg pain TECHNIQUE: 2-view left tibia and fibula. COMPARISON: none FINDINGS: The knee and ankle are anatomically aligned. There is no evidence of afracture or intrinsic bone lesion within the tibia and fibula. The softtissues appear normal. IMPRESSION: Negative left tibia and fibula. Dictated by Javi Abbott MD @ 10/01/2024 12:54:11 PM (Electronically Signed) us Wade Kahn DPM GENERAL IMAGING Final Res ult * XR FOOT 3 VIEWS LEFT (10/01/2024 9:41 AM CDT) Anatomical Region Laterality Modality FEET, FOOT L Computed Radiogr aphy 10/01/2024 12:5 3 PM CDT Impressions 10/01/2024 12:53 PM CDT Postop changes to the 1st metatarsal and great toe proximal phalanx. No acute fracture. The midfoot alignment is normal. Small calcaneal spurs. Hammertoe deformities are present including subluxation deformities at the proximal interphalangeal joints of the 2nd and 3rd toes. Dictated by Javi Abbott MD @ 10/01/2024 12:53:18 PM (Electronically Signed) Narrative 10/01/2024 12:53 PM CDT For Patients: As a result of the Cures Act, medical imaging exams and procedure reports are released immediately into your electronic medical record. You may view this report before your referring provider. If you have questions, please contact your health care provider. Indication: Left midfoot pain Technique: Three views left foot Comparison: 07/12/2022 Procedure Note Javi Abbott MD - 10/01/2024 For Patients: As a result of the Cures Act, medical imagingexams and procedure reports are released immediately into your electronicmedical record. You may view this report before your referring provider.If you have questions, please contact your health care provider. Indication: Left midfoot pain Technique: Three views left foot Comparison: 07/12/2022 IMPRESSION: Postop changes to the 1st metatarsal and great toe proximal phalanx. Noacute fracture. The midfoot alignment is normal. Small calcaneal spurs.Hammertoe deformities are present including subluxation deformities at theproximal interphalangeal joints of the 2nd and 3rd toes. Dictated by Javi Abbott MD @ 10/01/2024 12:53:18 PM (Electronically Signed) Wade Kahn DP GENERAL IMAGING Final Res ult * (ABNORMAL) HEMOGLOBIN A1C (09/05/2024 8:54 AM CDT) HEMOGLOBIN A1C 7.2(H) <5.7 % [facility] Comment: For someone without known diabetes, a hemoglobin A1c value of 6.5% or greater indicates that they may have diabetes and this should be confirmed with a follow-up test. For someone with known diabetes, a value <7% indicates that their diabetes is well controlled and a value greater than or equal to 7% indicates suboptimal control. A1c targets should be individualized based on duration of diabetes, age, comorbid conditions, and other considerations. Currently, no consensus exists regarding use of hemoglobin A1c for diagnosis of diabetes for children. Blood BLOOD SPECIMEN / Unknown 09/05/2024 8:54 AM CDT 09/05/2024 8:54 AM CDT Brenda Davis MD CHEMISTRY Final Resul t Performing Organization Address [facility] Co de Phone Number [facility] [address] [address], [place] [phone] [facility] [address] [place] [phone] * (ABNORMAL) LIPID PANEL W REFLEX MEASURED LDL (09/05/2024 8:54 AM CDT) [facility] CHOLESTEROL, TOTAL 220(H) <200 mg/dL [facility] HDL CHOLESTEROL 63 > OR = 50 mg/dL [facility] TRIGLYCERIDES 165(H) <150 mg/dL [facility] LDL-CHOLESTEROL 129(H) mg/dL (calc) [facility] Comment: Reference range: <100 Desirable range <100 mg/dL for primary prevention; <70 mg/dL for patients with CHD or diabetic patients with > or = 2 CHD risk factors. LDL-C is now calculated using the Ricky-Addie calculation, which is a validated novel method providing better accuracy than the Friedewald equation in the estimation of LDL-C. Ricky SS et al. YEISON. 2013;310(19): 3182-9984 (http://education.Foodoro/faq/LJE341) CHOL/HDLC RATIO 3.5 <5.0 (calc) [facility] NON HDL CHOLESTEROL 157(H) <130 mg/dL (calc) [facility] Comment: For patients with diabetes plus 1 major ASCVD risk factor, treating to a non-HDL-C goal of <100 mg/dL (LDL-C of <70 mg/dL) is considered a therapeutic option. Blood BLOOD SPECIMEN / Unknown 09/05/2024 8:54 AM CDT 09/05/2024 8:54 AM CDT Brenda Davis MD CHEMISTRY Final Resul t Performing Organization Address [facility] Co de Phone Number [facility] [address] [place] [address], [place] [phone] [facility] [address] [place] [address] * HBSAG (09/05/2024 8:54 AM CDT) HEPATITIS B SURFACE ANTIGEN NON-REACTI VE NON-REACTI VE [facility] Comment: For additional information, please refer to http://Abeelo.Access Mobile/faq/EYY037 (This link is being provided for informational/ educational purposes only.) Blood BLOOD SPECIMEN / Unknown 09/05/2024 8:54 AM CDT 09/05/2024 8:54 AM CDT us Brenda Davis MD SEND OUTS Final Resul t Performing Organization Address City/[facility]/ZIP Co de Phone Number [facility] [address] [address], [place] [phone] [facility] [address] [place] [address] * IGM ANTI-HBC (09/05/2024 8:54 AM CDT) HEPATITIS B CORE ANTIBODY (IGM) NON-REACTI VE NON-REACTI VE [facility] Comment: For additional information, please refer to http://Abeelo.Access Mobile/faq/BAI666 (This link is being provided for informational/ educational purposes only.) Blood BLOOD SPECIMEN / Unknown 09/05/2024 8:54 AM CDT 09/05/2024 8:54 AM CDT us Brenda Davis MD SEND OUTS Final Resul t [facility] [address] [place] [address], [facility] [address] [place] [address] * (ABNORMAL) ALT (SGPT) (09/05/2024 8:54 AM CDT) ALT 101(H) 6 - 29 U/L [facility] Blood BLOOD SPECIMEN / Unknown 09/05/2024 8:54 AM CDT 09/05/2024 8:54 AM CDT us Brenda Davis MD CHEMISTRY Final Resul t Performing Organization Address City/[facility]/ZIP Co de Phone Number [facility] [address] [place] [address], [place] [phone] [facility] [address] [place] [address] * (ABNORMAL) AST (SGOT) (09/05/2024 8:54 AM CDT) AST 91(H) 10 - 35 U/L [facility] elvin Roberte Blood BLOOD SPECIMEN / Unknown 09/05/2024 8:54 AM CDT 09/05/2024 8:54 AM CDT us Brenda Davis MD CHEMISTRY Final Resul t [facility] [address] [place] [address], [place] [phone] [facility] [address] [place] [phone] * (ABNORMAL) FERRITIN (09/05/2024 8:54 AM CDT) FERRITIN 320(H) 16 - 288 ng/mL [facility] Blood BLOOD SPECIMEN / Unknown 09/05/2024 8:54 AM CDT 09/05/2024 8:54 AM CDT us Brenda Davis MD CHEMISTRY Final Resul t Performing Organization Address [facility] Co de Phone Number [facility] [address] [place] [address], [facility] [address] [place] [address] * VITAMIN B12 (09/05/2024 8:54 AM CDT) [facility] VITAMIN B12 440 200 - 1,100 pg/mL [facility] Blood BLOOD SPECIMEN / Unknown 09/05/2024 8:54 AM CDT 09/05/2024 8:54 AM CDT Brenda Davis MD CHEMISTRY Final Resul t Performing Organization Address [facility] de Phone Number [facility] [address] [address], [place] [phone] [facility] [address] [place] [phone] * (ABNORMAL) BASIC METABOLIC PANEL (09/05/2024 8:54 AM CDT) [facility] GLUCOSE 155(H) 65 - 99 mg/dL [facility] Comment: Fasting reference interval For someone without known diabetes, a glucose value >125 mg/dL indicates that they may have diabetes and this should be confirmed with a follow-up test. UREA NITROGEN (BUN) 9 7 - 25 mg/dL [facility] CREATININE 0.72 0.50 - 1.05 mg/dL [facility] EGFR 92 > OR = 60 mL/min/1. 73m2 [facility] BUN/CREATININE RATIO SEE NOTE: 6 (calc) [facility] Comment: Not Reported: BUN and Creatinine are within reference range. SODIUM 138 135 - 146 mmol/L [facility] POTASSIUM 4.9 3.5 - 5.3 mmol/L [facility] CHLORIDE 100 98 - 110 mmol/L [facility] CARBON DIOXIDE 29 20 - 32 mmol/L [facility] ELECTROLYTE BALANCE 9 7 - 17 mmol/L (calc) [facility] CALCIUM 9.9 8.6 - 10.4 mg/dL [facility] Blood BLOOD SPECIMEN / Unknown 09/05/2024 8:54 AM CDT 09/05/2024 8:54 AM CDT us Brenda Davis MD CHEMISTRY Final Resul t [facility] [address] [place] [address], [facility] [address] [place] [address] * XR MAMMO JULIANA BILAT SCREEN (11/12/2023 1:45 PM CDT) Anatomical Region Laterality Modality BREASTS, Breast Left, Breast Right Bilateral Mammography Impressions 11/12/2023 1:49 PM CDT There is no radiographic evidence for malignancy. Recommend annual mammograms. MAMMOGRAM ASSESSMENT: ACR 1 Negative PATIENTS: You will also receive a letter with your examination results in an easy to read format. If you have questions about your results, please contact your referring provider. Narrative 11/12/2023 1:49 PM CDT For Patients: As a result of the Century Cures Act, medical imaging exams and procedure reports are released immediately into your electronic medical record. You may view this report before your referring provider. If you have questions, please contact your health care provider. XR MAMMO JULIANA BILAT SCREEN [[id number]] CLINICAL HISTORY: This is an asymptomatic 67 y.o. patient. INDICATION FOR EXAM: Mammogram Screening. TECHNIQUE: CC & MLO views were obtained. This study was evaluated with the assistance of Computer-Aided Detection. Breast Tomosynthesis was used in interpretation. COMPARISON FILM: Yes 09/28/22 [facility] 09/27/21 [facility] FINDINGS: The breasts are heterogeneously dense, which may obscure small masses. There are no dominant masses, suspicious micro calcifications or areas of architectural distortion. Mona Tanner DO MAMMO Final Resul t * COLONOSCOPY DIAGNOSTIC (12/19/2021 12:00 AM CDT) Mona Tanner DO GI PROCEDURE ORD Final Resu lt * (ABNORMAL) XR DXA BONE DENSITY 2 SITES AXIAL (11/24/2021 11:27 AM CDT) Anatomical Region Laterality Modality Spine, HIPS, HIPL, HIPR Other Impressions 11/30/2021 9:39 AM CDT Osteopenia. RECOMMENDATIONS: The National Osteoporosis Foundation recommends pharmacologic treatment for patients with T-scores of -2.5 or less, patients with prior history of fragility fractures, or patients with 10-year probability of greater than 3% at hips or greater than 20% of suffering major osteoporotic fractures. Recommend continued optimization of calcium and vitamin D intake through dietary means and/or supplementation and regular exercise. Repeat scan recommended in 3-5 years. Lucia Hightower PA-C [facility] 11/30/2021 Narrative 11/30/2021 9:39 AM CDT For Patients: Results are automatically released to your [facility] account once available, in compliance with federal regulations. This means that you may see your results before your provider has had a chance to review them. Please allow 2-3 business days for your provider to comment on the results. XR DXA Bone Mineral Density (BMD) EXAM LOCATION: [address] [address] PATIENT NAME: Lissy Wiley DATE OF : 1955 EXAM DATE: 11/24/2021 REQUESTING PROVIDER: Mona Tanner DO GENDER AT : female HEIGHT: 5' 6 (09/27/2021) WEIGHT: 188 lb 1.6 oz (11/23/2021) MENOPAUSAL STATUS: Postmenopausal RACE/ETHNICITY: White RISK FACTORS: Family History of Osteoporosis and White Race CURRENT MEDICATION FOR BONE LOSS: NONE INDICATION: Follow-up of existing osteopenia COMPARISON DATE(S): 2017 DXA scans are compared to prior studies for a patient only when the two (or more) studies were performed on the same scanner. It is not possible to compare data generated on one scanner to data from another because there are not standards in DXA equipment. This applies even if the two scanners are made by the same foam fabricator. PROCEDURE: Dual-energy x-ray absorptiometry performed with routine technique. Reporting is completed in the form of a T-score. The T-score represents the standard deviation from peak bone mass based on young healthy adult. A Z-score is used for diagnosis in premenopausal women, and for men under the age of 50. FINDINGS: RESULT LUMBAR SPINE L1 - L4 BMD: 0.934 g/cm2 T-Score: - 2.1 Z-Score: - 1.2 Change from prior in 2018: Decrease 6.0%. RESULTS FEMUR Left femoral neck BMD: 0.801 g/cm2 T-Score: - 1.7 Z-Score: - 0.7 Change from prior in 2018: Decrease 4.8%. Right femoral neck BMD: 0.790 g/cm2 T-Score: - 1.8 Z-Score: - 0.8 Change from prior in 2018: Increase 0.8%. Left hip BMD: 0.824 g/cm2 T-Score: - 1.5 Z-Score: - 0.8 Change from prior in 2018: Decrease 1.8%. Right hip BMD: 0.800 g/cm2 T-Score: - 1.7 Z-Score: - 0.9 Change from prior in 2018: Decrease 1.1%. WHO criteria: Normal: T-score at or above -1 SD Osteopenia: T-score between -1.1 and -2.4 SD Osteoporosis: T-score at or below -2.5 SD FRAX RISK CALCULATION (USED FOR OSTEOPENIA ONLY): 10-year probability of major osteoporotic fracture: 9.5%. 10-year probability of hip fracture: 1.2%. us Mona Tanner DO DEXA Final Resul t * ANTI HCV (02/24/2019 8:47 AM CDT) Pathologist [facility] HEPATITIS C ANTIBODY Non-React fabrizio Non-React fabrizio 02/24/2019 4:11 PM CDT [facility] Comment:Antibodies to HCV no t detected; does not exclude the possibility of exposure to HCV. Blood BLOOD SPECIMEN / Unknown Venipuncture / Unknown 02/24/2019 8:47 AM CDT 02/24/2019 8:47 AM CDT Mona Maru Tanner DO SEND OUTS Final Resul t [facility] [address] [place] [address], from Last 3 Months or Most Recently Relevant to Health Maintenance [place] [id number] MEDICARE PART A HB ONLY [facility] Advance Directives * Full Code (Latest Code Status on File) Date Activated Date Inactivated Comments 07/10/2018 8:31 AM 07/10/2018 3:00 PM Care Teams Material Assistant Relationship Specialty Start Date End Date Brenda Davis MD [address] [place] [address] PCP - General Family Practice 09/05/24
== END 2024-10-24 13:03 | disposition home or self-care (01) ==
LOC: OP CLINIC 13:04
PROVIDERS: PCP Family Medicine; Visit Provider Internal Medicine Gastroenterology
DX: Z12.11 Encounter for screening for malignant neoplasm of colon (principal); K92.1 Melena; Z86.0101 Personal history of adenomatous and serrated colon polyps; D12.2 Benign neoplasm of ascending colon; D12.4 Benign neoplasm of descending colon; K64.8 Other hemorrhoids
CPT/HCPCS: 00811; 45381; 45385; 88305; J2704

== ENCOUNTER 2025-02-06 10:32 | Outpatient (CLI) | payer MEDICARE, SELFPAY | END 2025-02-06 10:33 | disposition home or self-care (01) | LOC: NFLDREF 10:33 | PROVIDERS: PCP Family Medicine; Visit Provider Obstetrics & Gynecology | DX: R35.0 Frequency of micturition (principal) | CPT/HCPCS: 87086 ==